=== PATIENT | female | born 1945 | race Caucasian/White ===

== ENCOUNTER 2019-09-09 10:32 | Observation (INO) ==
[2019-09-09 10:59] LABS: Basophils # 0.1 K/mcL (0.0-0.2); Basophils % 0.8 %; Eosinophils # 0.2 K/mcL (0.0-0.6); Hematocrit 22.4 % (35.3-44.9); Immature Granulocytes % 0.4 % (0-4); Lymphocytes # 1.7 K/mcL (0.6-4.6); Lymphocytes % 22.3 %; Mean Corpuscular HGB Conc 25.9 g/dL (31.6-35.5); Mean Corpuscular Hemoglobin 17.6 pg (28.0-33.3); Mean Corpuscular Volume 68.1 fL (83.0-100.0); Mean Platelet Volume 8.5 fL (9.4-12.4); Monocytes # 0.8 K/mcL (0.0-1.3); Monocytes % 10.7 %; Platelet Count 720 K/mcL (140-400); Red Blood Count 3.29 M/mcL (3.82-4.97); Red Cell Distribution Width 18.5 % (11.5-14.5); Segmented Neutrophils % 63.8 %; White Blood Count 7.8 K/mcL (4.3-11.1)
[2019-09-09 11:03] LABS: Hemoglobin 5.8 g/dL (11.5-15.4)
[2019-09-09 11:07] LABS: BUN/Creatinine Ratio 15 (6-26); Blood Urea Nitrogen 15 mg/dL (8-23); Calcium 8.8 mg/dL (8.6-10.3); Carbon Dioxide 25 mEq/L (23-29); Chloride 99 mEq/L (98-107); Glucose 119 mg/dL (70-105); Magnesium 1.9 mg/dL (1.6-2.6); Osmolality,Calculated 280 (280-300); Potassium 4.7 mEq/L (3.5-5.1); Sodium 134 mEq/L (136-145); Troponin I < 0.03 ng/mL (< 0.04); eGFR For African Americans > 60 (> 60); eGFR For Non-African Americans 56 (> 60)
[2019-09-09 11:18] LABS: Anisocytosis 1+ (Not Present); Platelet Estimate Marked Increase (Normal)
[2019-09-09 11:19] LABS: Hypochromasia Present (Not Present); Microcytosis Present (Not Present)
[2019-09-09] MEDS ORDERED: 0.9 % Sodium Chloride 250 ML ONE ×2 (11:53→16:11)
[2019-09-09] MEDS ORDERED: *HR* HYDROcodone/Acet 5/325 mg TABLET PO ONE (12:00)
[2019-09-09 12:33] LABS: % Iron Saturation 2 % (15-50); Iron 11 mcg/dL (50-170); Transferrin 398 mg/dL (203-362)
[2019-09-09] MEDS ORDERED: Naloxone 0.4 MG/ML INJ IVP PRN (12:44)
[2019-09-09] MEDS ORDERED: Ondansetron 4 MG/2 ML VIAL IVP PRN (12:44)
[2019-09-09] MEDS ORDERED: Albuterol 2.5 MG/3 ML NEBULIZER IH PRN (12:54)
[2019-09-09 13:08] LABS: Estimated Average Glucose 126 mg/dl
[2019-09-09 13:18] LABS: Ferritin 8 ng/mL (10-120)
[2019-09-09 13:25] LABS: Bilirubin,Urine Negative (Negative); Blood,Urine Negative (Negative); Clarity,Urine Clear (Clear); Color,Urine Yellow (Yellow); Glucose,Urine (UA) Normal (Normal); Ketones,Urine Negative (Negative); Leukocyte Esterase,Urine Small (Negative); Nitrite,Urine Negative (Negative); PH,Urine 5.5 pH Units (5.0-8.0); Protein,Urine Negative (Neg-Trace); Specific Gravity,Urine 1.018 (1.010-1.025); Urobilinogen,Urine Normal (Normal)
[2019-09-09 13:26] LABS: Bacteria,Urine None Seen per hpf (None-Few); Hyaline Casts,Urine None Seen per lpf (None-Few); RBC,Urine 0-3 per hpf (0-3); Squamous Epithelial Cell,Urine Many per lpf (None-Few)
[2019-09-09] MEDS: *HR* HYDROcodone/Acet 5/325 mg TABLET PO PRN ×2 (15:51→20:37)
[2019-09-10 01:26] LABS: Hematocrit 30.1 % (35.3-44.9); Mean Corpuscular HGB Conc 30.2 g/dL (31.6-35.5); Mean Corpuscular Hemoglobin 21.9 pg (28.0-33.3); Mean Corpuscular Volume 72.5 fL (83.0-100.0); Mean Platelet Volume 8.6 fL (9.4-12.4); Platelet Count 570 K/mcL (140-400); Red Blood Count 4.15 M/mcL (3.82-4.97); Red Cell Distribution Width 21.3 % (11.5-14.5); White Blood Count 8.2 K/mcL (4.3-11.1)
[2019-09-10 01:27] LABS: Hemoglobin 9.1 g/dL (11.5-15.4)
[2019-09-10 01:46] LABS: BUN/Creatinine Ratio 17 (6-26); Blood Urea Nitrogen 13 mg/dL (8-23); Calcium 8.6 mg/dL (8.6-10.3); Carbon Dioxide 26 mEq/L (23-29); Chloride 105 mEq/L (98-107); Glucose 93 mg/dL (70-105); Magnesium 1.9 mg/dL (1.6-2.6); Osmolality,Calculated 282 (280-300); Potassium 4.1 mEq/L (3.5-5.1); Sodium 136 mEq/L (136-145); eGFR For African Americans > 60 (> 60); eGFR For Non-African Americans > 60 (> 60)
[2019-09-10] MEDS: *HR* HYDROcodone/Acet 5/325 mg TABLET PO PRN ×2 (04:40→15:25)
[2019-09-10] MEDS ORDERED: Aspirin Enteric Coated 81 MG Tablet PO SCH (09:00)
[2019-09-10 09:28] LABS: Basophils # 0.1 K/mcL (0.0-0.2); Basophils % 0.8 %; Eosinophils # 0.3 K/mcL (0.0-0.6); Eosinophils % 3.8 %; Hematocrit 30.9 % (35.3-44.9); Immature Granulocytes % 0.5 % (0-4); Lymphocytes # 1.4 K/mcL (0.6-4.6); Mean Corpuscular HGB Conc 29.1 g/dL (31.6-35.5); Mean Corpuscular Hemoglobin 21.6 pg (28.0-33.3); Mean Corpuscular Volume 74.3 fL (83.0-100.0); Mean Platelet Volume 8.5 fL (9.4-12.4); Monocytes # 0.8 K/mcL (0.0-1.3); Monocytes % 9.1 %; Neutrophils # 5.7 K/mcL (1.6-8.9); Platelet Count 587 K/mcL (140-400); Red Blood Count 4.16 M/mcL (3.82-4.97); Red Cell Distribution Width 21.6 % (11.5-14.5); Segmented Neutrophils % 68.8 %; White Blood Count 8.3 K/mcL (4.3-11.1)
[2019-09-10] MEDS: Acetaminophen 325 MG TABLET PO PRN ×2 (09:38)
[2019-09-10] MEDS ORDERED: *HR* LORazepam 1 MG TABLET PO PRN (09:40)
[2019-09-10] MEDS ORDERED: diazePAM 5 MG TABLET PO ONE (09:41)
[2019-09-10 11:36] VITALS: BP 181/68
== END 2019-09-10 15:29 | disposition home health service (06) ==
LOC: 3ANU 10:32 → EMEROOARM 10:32 → SUATTDRO 12:51 → 3ANU 13:30
PROVIDERS: ADMIT Internal Medicine; ATTEND Internal Medicine

== ENCOUNTER 2019-11-21 00:22 | Observation (INO) ==
[2019-11-21 00:59] LABS: Basophils # 0.1 K/mcL (0.0-0.2); Basophils % 1.2 %; Eosinophils # 0.2 K/mcL (0.0-0.6); Eosinophils % 2.1 %; Hematocrit 35.6 % (35.3-44.9); Hemoglobin 11.4 g/dL (11.5-15.4); Immature Granulocytes % 0.2 % (0-4); Lymphocytes # 2.1 K/mcL (0.6-4.6); Lymphocytes % 26.2 %; Mean Corpuscular Hemoglobin 29.6 pg (28.0-33.3); Mean Corpuscular Volume 92.5 fL (83.0-100.0); Mean Platelet Volume 8.3 fL (9.4-12.4); Monocytes # 0.7 K/mcL (0.0-1.3); Platelet Count 443 K/mcL (140-400); Red Blood Count 3.85 M/mcL (3.82-4.97); Red Cell Distribution Width 25.8 % (11.5-14.5); Segmented Neutrophils % 61.3 %; White Blood Count 8.1 K/mcL (4.3-11.1)
[2019-11-21 01:16] LABS: BUN/Creatinine Ratio 13 (6-26); Blood Urea Nitrogen 11 mg/dL (8-23); Calcium 8.7 mg/dL (8.6-10.3); Carbon Dioxide 30 mEq/L (23-29); Chloride 103 mEq/L (98-107); Glucose 94 mg/dL (70-105); Osmolality,Calculated 285 (280-300); Potassium 3.6 mEq/L (3.5-5.1); Sodium 138 mEq/L (136-145); eGFR For African Americans > 60 (> 60); eGFR For Non-African Americans > 60 (> 60)
[2019-11-21 01:17] LABS: Troponin I < 0.03 ng/mL (< 0.04)
[2019-11-21 01:22] LABS: Anisocytosis 1+ (Not Present)
[2019-11-21 01:23] LABS: Hypochromasia Present (Not Present); Microcytosis Present (Not Present); Platelet Estimate Normal (Normal); Poikilocytosis 1+ (Not Present)
[2019-11-21 01:58] LABS: VBG HCO3 32 mEq/L (21-27); VBG PCO2 61 mmHg (41-51); VBG PH 7.33 pH Units (7.32-7.42); VBG PO2 41 mmHg (25-50)
[2019-11-21 02:15] LABS: INR 1.1; Prothrombin Time 12.5 Seconds (9.4-12.1)
[2019-11-21 02:18] LABS: Activated Partial Thrombo Time 31.9 Seconds (26.0-36.0)
[2019-11-21] MEDS: Acetaminophen 325 MG TABLET PO ONE ×2 (04:47→12:07)
[2019-11-21] MEDS ORDERED: Naloxone 0.4 MG/ML INJ IVP PRN (08:27)
[2019-11-21] MEDS ORDERED: Albuterol 2.5 MG/3 ML NEBULIZER IH PRN (08:31)
[2019-11-21] MEDS ORDERED: Aspirin 81 MG TAB.CHEW PO ONE (08:34)
[2019-11-21] MEDS: Aspirin Enteric Coated 81 MG Tablet PO SCH (09:14)
[2019-11-21] MEDS: carvediloL 6.25 MG TABLET PO SCH ×2 (10:26→16:35)
[2019-11-21] MEDS: *HR* Heparin 5,000 UNIT/ML VIAL SQ SCH ×2 (16:35→21:21)
[2019-11-21] MEDS: diazePAM 5 MG TABLET PO SCH (21:21)
[2019-11-22] MEDS: *HR* Heparin 5,000 UNIT/ML VIAL SQ SCH ×3 (05:44→21:02)
[2019-11-22] MEDS: Acetaminophen 325 MG TABLET PO PRN (06:10)
[2019-11-22] MEDS: Aspirin Enteric Coated 81 MG Tablet PO SCH (08:42)
[2019-11-22] MEDS: carvediloL 6.25 MG TABLET PO SCH ×2 (08:42→16:04)
[2019-11-22 10:48] LABS: Basophils # 0.1 K/mcL (0.0-0.2); Basophils % 1.1 %; Eosinophils # 0.2 K/mcL (0.0-0.6); Eosinophils % 3.6 %; Hematocrit 32.9 % (35.3-44.9); Hemoglobin 10.2 g/dL (11.5-15.4); Immature Granulocytes % 0.2 % (0-4); Lymphocytes # 1.6 K/mcL (0.6-4.6); Lymphocytes % 24.3 %; Mean Corpuscular Hemoglobin 29.8 pg (28.0-33.3); Mean Corpuscular Volume 96.2 fL (83.0-100.0); Mean Platelet Volume 8.7 fL (9.4-12.4); Monocytes # 0.5 K/mcL (0.0-1.3); Monocytes % 8.5 %; Platelet Count 359 K/mcL (140-400); Red Blood Count 3.42 M/mcL (3.82-4.97); Segmented Neutrophils % 62.3 %; White Blood Count 6.4 K/mcL (4.3-11.1)
[2019-11-22 11:07] LABS: BUN/Creatinine Ratio 10 (6-26); Blood Urea Nitrogen 8 mg/dL (8-23); Calcium 8.3 mg/dL (8.6-10.3); Carbon Dioxide 31 mEq/L (23-29); Chloride 103 mEq/L (98-107); Glucose 146 mg/dL (70-105); Osmolality,Calculated 289 (280-300); Potassium 3.6 mEq/L (3.5-5.1); Sodium 139 mEq/L (136-145); eGFR For African Americans > 60 (> 60); eGFR For Non-African Americans > 60 (> 60)
[2019-11-22 11:14] LABS: Anisocytosis 1+ (Not Present); Hypochromasia Present (Not Present); Microcytosis Present (Not Present); Platelet Estimate Normal (Normal)
[2019-11-22] MEDS: diazePAM 5 MG TABLET PO SCH (20:59)
[2019-11-23] MEDS: Acetaminophen 325 MG TABLET PO PRN (01:43)
[2019-11-23 05:37] LABS: Basophils # 0.1 K/mcL (0.0-0.2); Eosinophils # 0.2 K/mcL (0.0-0.6); Eosinophils % 3.8 %; Hemoglobin 10.2 g/dL (11.5-15.4); Immature Granulocytes % 0.3 % (0-4); Lymphocytes # 1.9 K/mcL (0.6-4.6); Lymphocytes % 32.4 %; Mean Corpuscular HGB Conc 31.9 g/dL (31.6-35.5); Mean Corpuscular Hemoglobin 29.8 pg (28.0-33.3); Mean Corpuscular Volume 93.6 fL (83.0-100.0); Monocytes # 0.6 K/mcL (0.0-1.3); Monocytes % 9.6 %; Neutrophils # 3.1 K/mcL (1.6-8.9); Platelet Count 387 K/mcL (140-400); Red Blood Count 3.42 M/mcL (3.82-4.97); Red Cell Distribution Width 25.2 % (11.5-14.5); Segmented Neutrophils % 52.9 %; White Blood Count 5.8 K/mcL (4.3-11.1)
[2019-11-23 05:56] LABS: Anisocytosis 2+ (Not Present); BUN/Creatinine Ratio 8 (6-26); Blood Urea Nitrogen 6 mg/dL (8-23); Calcium 8.7 mg/dL (8.6-10.3); Carbon Dioxide 32 mEq/L (23-29); Chloride 102 mEq/L (98-107); Glucose 92 mg/dL (70-105); Osmolality,Calculated 289 (280-300); Potassium 3.7 mEq/L (3.5-5.1); Sodium 141 mEq/L (136-145); eGFR For African Americans > 60 (> 60); eGFR For Non-African Americans > 60 (> 60)
[2019-11-23 05:57] LABS: Ovalocytes 1+ (Not Present); Platelet Estimate Normal (Normal); Tear Drop Cells 1+ (Not Present)
[2019-11-23] MEDS: *HR* Heparin 5,000 UNIT/ML VIAL SQ SCH (06:03)
[2019-11-23 07:12] VITALS: BP 163/77
[2019-11-23] MEDS: Aspirin Enteric Coated 81 MG Tablet PO SCH (09:05)
[2019-11-23] MEDS: carvediloL 6.25 MG TABLET PO SCH (09:05)
== END 2019-11-23 12:01 | disposition home health service (06) ==
LOC: SUATTDRO → 3BNU 00:22 → EMEROOARM 00:22 → 3BNU 13:19
PROVIDERS: ADMIT Internal Medicine; ATTEND Internal Medicine

== ENCOUNTER 2021-03-08 07:59 | Inpatient (IN) ==
[2021-03-08] MEDS ORDERED: 0.9 % Sodium Chloride 1,000 ML IVC ONE (08:28)
[2021-03-08 08:40] LABS: Basophils % 0.7 %; Immature Granulocytes % 0.4 % (0-4)
[2021-03-08 08:41] LABS: Basophils # 0.1 K/mcL (0.0-0.2); Eosinophils # 0.1 K/mcL (0.0-0.6); Eosinophils % 0.8 %; Hematocrit 24.7 % (35.3-44.9); Hemoglobin 7.1 g/dL (11.5-15.4); Lymphocytes % 8.4 %; Mean Corpuscular HGB Conc 28.7 g/dL (31.6-35.5); Mean Corpuscular Hemoglobin 24.4 pg (28.0-33.3); Mean Corpuscular Volume 84.9 fL (83.0-100.0); Mean Platelet Volume 9.4 fL (9.4-12.4); Monocytes # 0.8 K/mcL (0.0-1.3); Monocytes % 6.6 %; Neutrophils # 9.4 K/mcL (1.6-8.9); Platelet Count 648 K/mcL (140-400); Red Blood Count 2.91 M/mcL (3.82-4.97); Red Cell Distribution Width 19.7 % (11.5-14.5); Segmented Neutrophils % 83.1 %; White Blood Count 11.3 K/mcL (4.3-11.1)
[2021-03-08 08:47] LABS: INR 1.1; Prothrombin Time 12.3 Seconds (9.4-12.1)
[2021-03-08 09:01] LABS: BUN/Creatinine Ratio 11 (6-26); Blood Urea Nitrogen 13 mg/dL (8-23); Calcium 8.3 mg/dL (8.6-10.3); Carbon Dioxide 28 mEq/L (23-29); Chloride 102 mEq/L (98-107); Glucose 155 mg/dL (70-105); Osmolality,Calculated 287 (280-300); Potassium 4.7 mEq/L (3.5-5.1); Sodium 137 mEq/L (136-145); Troponin I < 0.03 ng/mL (< 0.04); eGFR For African Americans 55 (> 60); eGFR For Non-African Americans 46 (> 60)
[2021-03-08 09:13] LABS: Anisocytosis 1+ (Not Present); Hypochromasia Present (Not Present); Platelet Estimate Increased (Normal)
[2021-03-08 10:40] LABS: Bilirubin,Urine Negative (Negative); Blood,Urine Negative (Negative); Clarity,Urine Clear (Clear); Color,Urine Light-Yellow (Yellow); Glucose,Urine (UA) Normal (Normal); Ketones,Urine Negative (Negative); Leukocyte Esterase,Urine Negative (Negative); Nitrite,Urine Negative (Negative); PH,Urine 5.5 pH Units (5.0-8.0); Protein,Urine Negative (Neg-Trace); Specific Gravity,Urine 1.015 (1.010-1.025); Urobilinogen,Urine Normal (Normal)
[2021-03-08] MEDS ORDERED: 0.9 % Sodium Chloride 500 ML ONE (10:42)
[2021-03-08] MEDS ORDERED: Acetaminophen 325 MG TABLET PO ONE (10:45)
[2021-03-08] MEDS ORDERED: Tdap (Boostrix) Vaccine 0.5 ML SYRINGE IM ONE (10:46)
[2021-03-08] MEDS ORDERED: Ondansetron 4 MG/2 ML VIAL IVP PRN (12:05)
[2021-03-08] MEDS ORDERED: Naloxone 0.4 MG/ML INJ IVP PRN (12:05)
[2021-03-08] MEDS ORDERED: Perflutren Lipid Microsphere 1.3 ML in 0.9 % Sodium Chloride 8.7 ML IVP PRN (12:56)
[2021-03-08] MEDS ORDERED: Ipratropium/Albuterol Neb 3 ML IH PRN (13:00)
[2021-03-08] MEDS: *HR* Heparin 5,000 UNIT/ML VIAL SQ SCH (17:38)
[2021-03-08] MEDS: carvediloL 6.25 MG TABLET PO SCH (20:33)
[2021-03-08] MEDS: *HR* LORazepam 1 MG TABLET PO PRN (20:33)
[2021-03-09] MEDS: Acetaminophen 325 MG TABLET PO PRN ×3 (03:19→17:21)
[2021-03-09] MEDS: *HR* Heparin 5,000 UNIT/ML VIAL SQ SCH ×2 (05:34→17:21)
[2021-03-09 07:22] LABS: Basophils # 0.1 K/mcL (0.0-0.2); Basophils % 0.6 %; Eosinophils # 0.1 K/mcL (0.0-0.6); Eosinophils % 1.2 %; Hematocrit 23.7 % (35.3-44.9); Hemoglobin 7.1 g/dL (11.5-15.4); Immature Granulocytes % 0.5 % (0-4); Lymphocytes # 2.1 K/mcL (0.6-4.6); Lymphocytes % 18.9 %; Mean Corpuscular Hemoglobin 25.8 pg (28.0-33.3); Mean Corpuscular Volume 86.2 fL (83.0-100.0); Mean Platelet Volume 9.3 fL (9.4-12.4); Monocytes # 1.1 K/mcL (0.0-1.3); Neutrophils # 7.5 K/mcL (1.6-8.9); Platelet Count 461 K/mcL (140-400); Red Blood Count 2.75 M/mcL (3.82-4.97); Red Cell Distribution Width 19.2 % (11.5-14.5); Segmented Neutrophils % 68.8 %; White Blood Count 10.9 K/mcL (4.3-11.1)
[2021-03-09 07:31] LABS: BUN/Creatinine Ratio 14 (6-26); Blood Urea Nitrogen 15 mg/dL (8-23); Calcium 7.8 mg/dL (8.6-10.3); Carbon Dioxide 27 mEq/L (23-29); Chloride 103 mEq/L (98-107); Glucose 109 mg/dL (70-105); Osmolality,Calculated 281 (280-300); Potassium 4.2 mEq/L (3.5-5.1); Sodium 135 mEq/L (136-145); eGFR For African Americans > 60 (> 60); eGFR For Non-African Americans 51 (> 60)
[2021-03-09] MEDS: carvediloL 6.25 MG TABLET PO SCH ×2 (08:30→17:21)
[2021-03-10 01:26] LABS: Basophils # 0.1 K/mcL (0.0-0.2); Basophils % 0.7 %; Eosinophils # 0.3 K/mcL (0.0-0.6); Eosinophils % 2.9 %; Hematocrit 24.2 % (35.3-44.9); Hemoglobin 7.2 g/dL (11.5-15.4); Immature Granulocytes % 0.5 % (0-4); Lymphocytes # 2.2 K/mcL (0.6-4.6); Lymphocytes % 25.2 %; Mean Corpuscular HGB Conc 29.8 g/dL (31.6-35.5); Mean Corpuscular Hemoglobin 26.1 pg (28.0-33.3); Mean Corpuscular Volume 87.7 fL (83.0-100.0); Mean Platelet Volume 9.2 fL (9.4-12.4); Monocytes % 11.6 %; Neutrophils # 5.1 K/mcL (1.6-8.9); Platelet Count 408 K/mcL (140-400); Red Blood Count 2.76 M/mcL (3.82-4.97); Red Cell Distribution Width 19.7 % (11.5-14.5); Segmented Neutrophils % 59.1 %; White Blood Count 8.7 K/mcL (4.3-11.1)
[2021-03-10 01:35] LABS: % Iron Saturation 4 % (15-50); BUN/Creatinine Ratio 14 (6-26); Blood Urea Nitrogen 13 mg/dL (8-23); Calcium 7.8 mg/dL (8.6-10.3); Carbon Dioxide 27 mEq/L (23-29); Chloride 104 mEq/L (98-107); Glucose 88 mg/dL (70-105); Iron 10 mcg/dL (50-170); Osmolality,Calculated 286 (280-300); Potassium 4.1 mEq/L (3.5-5.1); Sodium 138 mEq/L (136-145); Transferrin 202 mg/dL (203-362); eGFR For African Americans > 60 (> 60); eGFR For Non-African Americans 57 (> 60)
[2021-03-10 01:54] LABS: Ferritin 19 ng/mL (10-120)
[2021-03-10 02:00] LABS: Folate 4.9 ng/mL (3.0-16.0)
[2021-03-10] MEDS: Acetaminophen 325 MG TABLET PO PRN ×3 (02:50→20:04)
[2021-03-10] MEDS: *HR* Heparin 5,000 UNIT/ML VIAL SQ SCH ×2 (05:14→16:48)
[2021-03-10] MEDS: carvediloL 6.25 MG TABLET PO SCH ×2 (08:32→16:48)
[2021-03-10] MEDS ORDERED: Melatonin 3 MG TABLET PO PRN (12:45)
[2021-03-10] MEDS: Furosemide 20 MG TABLET PO SCH (13:23)
[2021-03-10] MEDS: *HR* LORazepam 1 MG TABLET PO PRN (16:53)
[2021-03-11 05:18] LABS: Basophils # 0.1 K/mcL (0.0-0.2); Basophils % 0.6 %; Eosinophils # 0.3 K/mcL (0.0-0.6); Eosinophils % 3.9 %; Hemoglobin 7.5 g/dL (11.5-15.4); Immature Granulocytes % 0.4 % (0-4); Lymphocytes # 1.9 K/mcL (0.6-4.6); Lymphocytes % 22.2 %; Mean Corpuscular Hemoglobin 26.8 pg (28.0-33.3); Mean Corpuscular Volume 89.3 fL (83.0-100.0); Mean Platelet Volume 9.5 fL (9.4-12.4); Monocytes % 11.6 %; Neutrophils # 5.2 K/mcL (1.6-8.9); Nucleated Red Blood Cells 0.2 /100 WBC (0); Platelet Count 421 K/mcL (140-400); Segmented Neutrophils % 61.3 %; White Blood Count 8.4 K/mcL (4.3-11.1)
[2021-03-11 05:39] LABS: BUN/Creatinine Ratio 15 (6-26); Blood Urea Nitrogen 14 mg/dL (8-23); Calcium 7.9 mg/dL (8.6-10.3); Carbon Dioxide 32 mEq/L (23-29); Chloride 103 mEq/L (98-107); Glucose 110 mg/dL (70-105); Osmolality,Calculated 289 (280-300); Potassium 3.6 mEq/L (3.5-5.1); Sodium 139 mEq/L (136-145); eGFR For African Americans > 60 (> 60); eGFR For Non-African Americans > 60 (> 60)
[2021-03-11] MEDS: *HR* Heparin 5,000 UNIT/ML VIAL SQ SCH (06:05)
[2021-03-11] MEDS: carvediloL 6.25 MG TABLET PO SCH (08:27)
[2021-03-11] MEDS: Furosemide 20 MG TABLET PO SCH (08:27)
[2021-03-11] MEDS ORDERED: NON-FORMULARY MEDICATION 1 EACH EACH (Omeprazole [Prilosec] 40 MG Capsule.Dr) PO SCH (09:00)
[2021-03-11] MEDS ORDERED: Aspirin Enteric Coated 81 MG Tablet PO SCH (09:00)
[2021-03-11 12:14] VITALS: BP 141/68
== END 2021-03-11 14:17 | disposition home health service (06) | DRG 918 ==
LOC: EMEROOARM 07:59 → 3ANU 07:59 → SUATTDRO 21:46
PROVIDERS: ADMIT Internal Medicine; ATTEND Internal Medicine

== ENCOUNTER 2021-05-29 14:18 | Inpatient (IN) ==
[2021-05-29 16:14] LABS: Bacteria,Urine Few per hpf (None-Few); Bilirubin,Urine Negative (Negative); Blood,Urine Negative (Negative); Clarity,Urine Turbid (Clear); Color,Urine Light-Yellow (Yellow); Glucose,Urine (UA) Normal (Normal); Hyaline Casts,Urine Few per lpf (None Seen); Ketones,Urine Negative (Negative); Leukocyte Esterase,Urine Large (Negative); Mucus,Urine Few per lpf (None-Few); Nitrite,Urine Negative (Negative); Protein,Urine Negative (Neg-Trace); Specific Gravity,Urine 1.009 (1.010-1.025); Squamous Epithelial Cell,Urine Moderate per hpf (None-Few); Urobilinogen,Urine Normal (Normal); WBC,Urine 50-100 per hpf (0-3)
[2021-05-29 16:40] LABS: Red Blood Count 3.78 M/mcL (3.82-4.97); Red Cell Distribution Width 14.8 % (11.5-14.5)
[2021-05-29 16:42] LABS: Basophils # 0.1 K/mcL (0.0-0.2); Basophils % 0.7 %; Eosinophils # 0.2 K/mcL (0.0-0.6); Eosinophils % 2.4 %; Hematocrit 38.5 % (35.3-44.9); Hemoglobin 11.7 g/dL (11.5-15.4); Immature Granulocytes % 0.2 % (0-4); Immature Platelets 3.2 % (1.1-6.1); Lymphocytes # 1.9 K/mcL (0.6-4.6); Mean Corpuscular HGB Conc 30.4 g/dL (31.6-35.5); Mean Corpuscular Volume 101.9 fL (83.0-100.0); Mean Platelet Volume 9.8 fL (9.4-12.4); Monocytes # 0.6 K/mcL (0.0-1.3); Neutrophils # 5.5 K/mcL (1.6-8.9); Platelet Count 322 K/mcL (140-400); Segmented Neutrophils % 66.7 %; White Blood Count 8.3 K/mcL (4.3-11.1)
[2021-05-29 16:51] LABS: VBG Ionized Calcium 1.07 mmol/L (1.15-1.35)
[2021-05-29 16:59] LABS: Prothrombin Time 11.1 Seconds (9.4-12.1)
[2021-05-29 17:07] LABS: Platelet Estimate Normal (Normal)
[2021-05-29 17:25] LABS: Alanine Aminotransferase 8 Units/L (7-52); Albumin 3.4 g/dL (3.5-5.7); Alkaline Phosphatase 113 Units/L (34-104); Aspartate Amino Transferase 13 Units/L (13-39); BUN/Creatinine Ratio 11 (6-26); Bilirubin,Total 0.2 mg/dL (0.3-1.0); Blood Urea Nitrogen 8 mg/dL (8-23); Calcium 9.2 mg/dL (8.6-10.3); Carbon Dioxide 29 mEq/L (23-29); Chloride 102 mEq/L (98-107); Creatine Kinase 27 Units/L (30-223); Glucose 87 mg/dL (70-105); Magnesium 1.9 mg/dL (1.6-2.6); Osmolality,Calculated 290 (280-300); Phosphorous 3.8 mg/dL (2.7-4.5); Potassium 4.8 mEq/L (3.5-5.1); Sodium 141 mEq/L (136-145); Thyroid Stimulating Hormone 1.537 mcIU/mL (0.340-5.600); Troponin I < 0.03 ng/mL (< 0.04); eGFR For African Americans > 60 (> 60); eGFR For Non-African Americans > 60 (> 60)
[2021-05-29] MEDS ORDERED: cefTRIAXone 1,000 MG in Water for inj. (sterile) 10 ML IVP ONE (17:30)
[2021-05-29] MEDS ORDERED: Ondansetron 4 MG/2 ML VIAL IVP ONE (17:31)
[2021-05-29] MEDS ORDERED: Naloxone 0.4 MG/ML INJ IVP PRN (17:42)
[2021-05-29] MEDS ORDERED: Melatonin 3 MG TABLET PO PRN (17:42)
[2021-05-29 17:45] LABS: Globulin 3.3 g/dL (2.4-3.5); Total Protein 6.7 g/dL (6.4-8.9)
[2021-05-29] MEDS ORDERED: 0.9 % Sodium Chloride 500 ML IVC ONE (17:46)
[2021-05-29] MEDS ORDERED: Ipratropium/Albuterol Neb 3 ML IH PRN (18:22)
[2021-05-29] MEDS ORDERED: Furosemide 20 MG/2 ML VIAL IVP ONE (18:22)
[2021-05-29] MEDS ORDERED: Perflutren Lipid Microsphere 1.3 ML in 0.9 % Sodium Chloride 8.7 ML IVP PRN (21:15)
[2021-05-29] MEDS ORDERED: *HR* LORazepam 1 MG TABLET PO PRN (22:33)
[2021-05-30] MEDS: Acetaminophen 325 MG TABLET PO PRN ×2 (00:05→08:48)
[2021-05-30] MEDS: *HR* Heparin 5,000 UNIT/ML VIAL SQ SCH ×2 (04:56→16:54)
[2021-05-30] MEDS: cefTRIAXone 1,000 MG in Water for inj. (sterile) 10 ML IVP SCH (08:48)
[2021-05-30] MEDS ORDERED: Furosemide 20 MG TABLET PO PRN (18:50)
[2021-05-30] MEDS ORDERED: Furosemide 20 MG/2 ML VIAL IVP ONE (18:52)
[2021-05-30] MEDS: carvediloL 6.25 MG TABLET PO SCH (19:30)
[2021-05-30] MEDS ORDERED: Gabapentin 100 MG CAPSULE PO SCH (21:00)
[2021-05-30] MEDS ORDERED: Acetaminophen/Butalbital/CaffeineTABLET PO SCH (21:00)
[2021-05-31] MEDS: *HR* Heparin 5,000 UNIT/ML VIAL SQ SCH (05:12)
[2021-05-31 05:57] LABS: Basophils % 0.6 %; Eosinophils # 0.2 K/mcL (0.0-0.6); Eosinophils % 3.7 %; Hematocrit 33.8 % (35.3-44.9); Hemoglobin 10.5 g/dL (11.5-15.4); Immature Granulocytes % 0.2 % (0-4); Lymphocytes # 2.1 K/mcL (0.6-4.6); Lymphocytes % 33.7 %; Mean Corpuscular HGB Conc 31.1 g/dL (31.6-35.5); Mean Corpuscular Hemoglobin 31.3 pg (28.0-33.3); Mean Corpuscular Volume 100.6 fL (83.0-100.0); Mean Platelet Volume 9.7 fL (9.4-12.4); Monocytes # 0.6 K/mcL (0.0-1.3); Monocytes % 8.9 %; Neutrophils # 3.3 K/mcL (1.6-8.9); Platelet Count 302 K/mcL (140-400); Red Blood Count 3.36 M/mcL (3.82-4.97); Red Cell Distribution Width 14.8 % (11.5-14.5); Segmented Neutrophils % 52.9 %; White Blood Count 6.2 K/mcL (4.3-11.1)
[2021-05-31 06:20] LABS: BUN/Creatinine Ratio 12 (6-26); Blood Urea Nitrogen 9 mg/dL (8-23); Calcium 8.7 mg/dL (8.6-10.3); Carbon Dioxide 33 mEq/L (23-29); Chloride 101 mEq/L (98-107); Glucose 91 mg/dL (70-105); Osmolality,Calculated 288 (280-300); Potassium 3.8 mEq/L (3.5-5.1); Sodium 140 mEq/L (136-145); eGFR For African Americans > 60 (> 60); eGFR For Non-African Americans > 60 (> 60)
[2021-05-31] MEDS: carvediloL 6.25 MG TABLET PO SCH ×2 (08:40→15:21)
[2021-05-31] MEDS: cefTRIAXone 1,000 MG in Water for inj. (sterile) 10 ML IVP SCH (08:40)
[2021-05-31] MEDS ORDERED: diazePAM 5 MG TABLET PO SCH (09:00)
[2021-05-31] MEDS ORDERED: Furosemide 20 MG/2 ML VIAL IVP ONE (14:31)
[2021-05-31 15:18] VITALS: BP 137/60
[2021-06-01] MEDS ORDERED: Furosemide 20 MG TABLET PO SCH (09:00)
== END 2021-05-31 18:32 | disposition home health service (06) | DRG 552 ==
LOC: 3NENU 14:18 → EMEROOARM 14:18 → 3NENU 19:47 → SUATTDRO 05-30 14:09
PROVIDERS: ADMIT Internal Medicine; ATTEND Internal Medicine

== ENCOUNTER 2021-10-08 09:31 | Inpatient (IN) ==
[2021-10-08] MEDS ORDERED: Ipratropium/Albuterol Neb 3 ML IH ONE (09:36)
[2021-10-08] MEDS ORDERED: methylPREDNISolone 125 MG in 0.9 % Sodium Chloride 100 ML IVPB ONE (09:36)
[2021-10-08] MEDS ORDERED: 0.9 % Sodium Chloride 1,000 ML IVC ONE (09:36)
[2021-10-08] MEDS ORDERED: Azithromycin 500 MG in 0.9 % Sodium Chloride 250 ML IVPB ONE (09:41)
[2021-10-08] MEDS ORDERED: cefTRIAXone 1,000 MG in 0.9 % Sodium Chloride Mini Bag 100 ML IVPB ONE (09:41)
[2021-10-08] MEDS ORDERED: methylPREDNISolone 125 MG/2 ML VIAL IVP ONE (10:00)
[2021-10-08 10:12] LABS: Basophils % 0.1 %; Hematocrit 35.9 % (35.3-44.9); Hemoglobin 11.1 g/dL (11.5-15.4); Immature Granulocytes % 1.1 % (0-4); Lymphocytes # 1.1 K/mcL (0.6-4.6); Lymphocytes % 11.1 %; Mean Corpuscular HGB Conc 30.9 g/dL (31.6-35.5); Mean Corpuscular Hemoglobin 31.7 pg (28.0-33.3); Mean Corpuscular Volume 102.6 fL (83.0-100.0); Mean Platelet Volume 10.1 fL (9.4-12.4); Monocytes # 0.9 K/mcL (0.0-1.3); Neutrophils # 7.7 K/mcL (1.6-8.9); Platelet Count 267 K/mcL (140-400); Red Cell Distribution Width 12.7 % (11.5-14.5); Segmented Neutrophils % 78.7 %; White Blood Count 9.8 K/mcL (4.3-11.1)
[2021-10-08 10:19] LABS: INR 1.1; Prothrombin Time 12.8 Seconds (9.4-12.1)
[2021-10-08 10:21] LABS: Activated Partial Thrombo Time 31.4 Seconds (26.0-36.0)
[2021-10-08 10:53] LABS: Alanine Aminotransferase 22 Units/L (7-52); Albumin 3.6 g/dL (3.5-5.7); Alkaline Phosphatase 93 Units/L (34-104); Aspartate Amino Transferase 42 Units/L (13-39); BUN/Creatinine Ratio 24 (6-26); Bilirubin,Direct 0.1 mg/dL (0.0-0.2); Bilirubin,Indirect 0.1 mg/dL (0.0-1.0); Bilirubin,Total 0.2 mg/dL (0.3-1.0); Blood Urea Nitrogen 26 mg/dL (8-23); Calcium 8.2 mg/dL (8.6-10.3); Carbon Dioxide 28 mEq/L (23-29); Chloride 99 mEq/L (98-107); Globulin 3.7 g/dL (2.4-3.5); Glucose 123 mg/dL (70-105); Magnesium 1.8 mg/dL (1.6-2.6); Osmolality,Calculated 290 (280-300); Phosphorous 2.9 mg/dL (2.7-4.5); Sodium 137 mEq/L (136-145); Total Protein 7.3 g/dL (6.4-8.9); Troponin I 0.21 ng/mL (< 0.04); eGFR For African Americans > 60 (> 60); eGFR For Non-African Americans 50 (> 60)
[2021-10-08] MEDS ORDERED: Aspirin 325 MG TABLET PO ONE (11:02)
[2021-10-08 11:10] LABS: Amorphous Sediment,Urine Few per hpf (None-Few); Bilirubin,Urine Negative (Negative); Blood,Urine Negative (Negative); Clarity,Urine Turbid (Clear); Color,Urine Yellow (Yellow); Glucose,Urine (UA) Normal (Normal); Granular Casts,Urine Moderate per lpf (None Seen); Hyaline Casts,Urine Moderate per lpf (None Seen); Ketones,Urine 10 mg/dL (Negative); Leukocyte Esterase,Urine Negative (Negative); Mucus,Urine Few per lpf (None-Few); Nitrite,Urine Negative (Negative); PH,Urine 5.5 pH Units (5.0-8.0); Protein,Urine 70 mg/dL (Neg-Trace); RBC,Urine 0-3 per hpf (0-3); Squamous Epithelial Cell,Urine Few per hpf (None-Few); Transitional Epi Cells,Urine Few per hpf (None-Few); Urobilinogen,Urine Normal (Normal); WBC,Urine 0-3 per hpf (0-3)
[2021-10-08] MEDS ORDERED: Ondansetron 4 MG/2 ML VIAL IVP PRN (11:31)
[2021-10-08] MEDS: Ipratropium/Albuterol Neb 3 ML IH SCH ×2 (12:05→15:55)
[2021-10-08] MEDS ORDERED: Remdesivir 200 MG in 0.9 % Sodium Chloride 100 ML IVPB ONE (16:27)
[2021-10-08] MEDS ORDERED: MethylPREDNISolone 40 MG/ML VIAL IVP SCH (18:00)
[2021-10-08] MEDS: Ipratropium 1 PUFF INHALER IH SCH ×2 (20:27→23:12)
[2021-10-08] MEDS: *HR* LORazepam 1 MG TABLET PO PRN (21:41)
[2021-10-09] MEDS: Ipratropium 1 PUFF INHALER IH SCH ×5 (03:32→20:16)
[2021-10-09] MEDS: *HR* Enoxaparin 40 MG/0.4 ML SYRINGE SQ SCH (05:35)
[2021-10-09 07:27] LABS: Hematocrit 32.1 % (35.3-44.9); Hemoglobin 10.2 g/dL (11.5-15.4); Mean Corpuscular HGB Conc 31.8 g/dL (31.6-35.5); Mean Corpuscular Volume 100.6 fL (83.0-100.0); Mean Platelet Volume 10.1 fL (9.4-12.4); Platelet Count 271 K/mcL (140-400); Red Blood Count 3.19 M/mcL (3.82-4.97); Red Cell Distribution Width 12.9 % (11.5-14.5); White Blood Count 5.8 K/mcL (4.3-11.1)
[2021-10-09 08:35] LABS: BUN/Creatinine Ratio 29 (6-26); Blood Urea Nitrogen 25 mg/dL (8-23); Calcium 8.3 mg/dL (8.6-10.3); Carbon Dioxide 30 mEq/L (23-29); Chloride 103 mEq/L (98-107); Glucose 124 mg/dL (70-105); Osmolality,Calculated 298 (280-300); Potassium 4.3 mEq/L (3.5-5.1); Sodium 141 mEq/L (136-145); eGFR For African Americans > 60 (> 60); eGFR For Non-African Americans > 60 (> 60)
[2021-10-09 08:36] LABS: Albumin 3.3 g/dL (3.5-5.7); Bilirubin,Indirect 0.2 mg/dL (0.0-1.0); Bilirubin,Total 0.2 mg/dL (0.3-1.0); Globulin 3.2 g/dL (2.4-3.5); Total Protein 6.5 g/dL (6.4-8.9)
[2021-10-09] MEDS ORDERED: Aspirin 81 MG TAB.CHEW PO SCH (09:00)
[2021-10-09] MEDS ORDERED: Azithromycin 500 MG in 0.9 % Sodium Chloride 250 ML IVPB SCH (09:00)
[2021-10-09] MEDS: Acetaminophen 325 MG TABLET PO PRN ×2 (09:40→15:47)
[2021-10-09] MEDS: *HR* LORazepam 1 MG TABLET PO PRN (09:42)
[2021-10-09] MEDS ORDERED: Remdesivir 100 MG in 0.9 % Sodium Chloride 100 ML IVPB SCH (17:00)
[2021-10-09] MEDS: carvediloL 6.25 MG TABLET PO SCH (17:27)
[2021-10-09] MEDS: *HR* LORazepam 1 MG TABLET PO SCH ×2 (17:28→21:22)
[2021-10-09] MEDS ORDERED: Gabapentin 100 MG CAPSULE PO SCH (21:00)
[2021-10-09] MEDS ORDERED: Acetaminophen/Butalbital/CaffeineTABLET PO SCH (21:00)
[2021-10-10] MEDS: Ipratropium 1 PUFF INHALER IH SCH ×4 (00:12→10:45)
[2021-10-10] MEDS: *HR* Enoxaparin 40 MG/0.4 ML SYRINGE SQ SCH (05:08)
[2021-10-10 06:33] LABS: Albumin 3.3 g/dL (3.5-5.7); Albumin/Globulin Ratio 1.1 (1.1-2.2); Bilirubin,Direct 0.1 mg/dL (0.0-0.2); Bilirubin,Indirect 0.1 mg/dL (0.0-1.0); Bilirubin,Total 0.2 mg/dL (0.3-1.0); Globulin 2.9 g/dL (2.4-3.5); Total Protein 6.2 g/dL (6.4-8.9)
[2021-10-10] MEDS ORDERED: Azithromycin 250 MG TABLET PO SCH (09:00)
[2021-10-10] MEDS ORDERED: Cholecalciferol (D-3) 1,000 UNIT (25MCG) TABLET PO SCH (09:00)
[2021-10-10] MEDS ORDERED: Furosemide 20 MG TABLET PO SCH (09:00)
[2021-10-10] MEDS: *HR* LORazepam 1 MG TABLET PO SCH (09:44)
[2021-10-10] MEDS: carvediloL 6.25 MG TABLET PO SCH (09:47)
[2021-10-10 10:58] VITALS: BP 131/54; PULSE 80; TEMP 98; O2SAT 96
[2021-10-10] MEDS ORDERED: diazePAM 5 MG TABLET PO SCH (12:00)
== END 2021-10-10 12:36 | disposition home health service (06) | DRG 177 ==
LOC: 2NENU 09:31 → EMEROOARM 09:31 → 2NENU 15:30 → SUATTDRO 10-09 11:53
PROVIDERS: ADMIT Internal Medicine; ATTEND Internal Medicine

== ENCOUNTER 2022-07-30 12:02 | Inpatient (IN) ==
[2022-07-30] MEDS ORDERED: 0.9 % Sodium Chloride 1,000 ML IVC ONE (12:11)
[2022-07-30 12:53] LABS: Basophils # 0.1 K/mcL (0.0-0.2); Basophils % 0.5 %; Eosinophils # 0.1 K/mcL (0.0-0.6); Eosinophils % 0.5 %; Hematocrit 38.2 % (35.3-44.9); Hemoglobin 11.9 g/dL (11.5-15.4); Immature Granulocytes % 0.8 % (0-4); Lymphocytes % 9.1 %; Mean Corpuscular HGB Conc 31.2 g/dL (31.6-35.5); Mean Corpuscular Hemoglobin 31.2 pg (28.0-33.3); Mean Platelet Volume 9.7 fL (9.4-12.4); Monocytes # 0.8 K/mcL (0.0-1.3); Monocytes % 7.6 %; Neutrophils # 8.6 K/mcL (1.6-8.9); Platelet Count 332 K/mcL (140-400); Red Blood Count 3.82 M/mcL (3.82-4.97); Red Cell Distribution Width 13.2 % (11.5-14.5); Segmented Neutrophils % 81.5 %; White Blood Count 10.5 K/mcL (4.3-11.1)
[2022-07-30 12:56] LABS: Bacteria,Urine Few per hpf (None-Few); Bilirubin,Urine Negative (Negative); Blood,Urine Trace (Negative); Clarity,Urine Turbid (Clear); Color,Urine Yellow (Yellow); Glucose,Urine (UA) Normal (Normal); Hyaline Casts,Urine Few per lpf (None Seen); Ketones,Urine Negative (Negative); Leukocyte Esterase,Urine Large (Negative); Mucus,Urine Few per lpf (None-Few); Nitrite,Urine Positive (Negative); Protein,Urine 30 mg/dL (Neg-Trace); RBC,Urine 0-3 per hpf (0-3); Specific Gravity,Urine 1.015 (1.010-1.025); Squamous Epithelial Cell,Urine Few per hpf (None-Few); Urobilinogen,Urine Normal (Normal); WBC,Urine 30-50 per hpf (0-3)
[2022-07-30 13:06] LABS: INR 1.1; Prothrombin Time 11.9 Seconds (9.4-12.1)
[2022-07-30 13:09] LABS: Activated Partial Thrombo Time 29.8 Seconds (26.0-36.0)
[2022-07-30 13:27] LABS: Amphetamine Screen,Urine Negative ng/mL (Cutoff=1000); Barbiturate Screen,Urine Positive ng/mL (Cutoff=200); Benzodiazepines Screen,Urine Positive ng/mL (Cutoff=200); Cannabinoid Screen,Urine Negative ng/mL (Cutoff = 50); Cocaine Screen,Urine Negative ng/mL (Cutoff= 300); Opiate Screen,Urine Negative ng/mL (Cutoff=300); Phencyclidine Screen,Urine Negative ng/mL (Cutoff=25)
[2022-07-30 13:29] LABS: Alanine Aminotransferase 9 Units/L (7-52); Albumin 3.5 g/dL (3.5-5.7); Albumin/Globulin Ratio 0.8 (1.1-2.2); Alkaline Phosphatase 166 Units/L (34-104); Aspartate Amino Transferase 24 Units/L (13-39); BUN/Creatinine Ratio 14 (6-26); Bilirubin,Direct 0.1 mg/dL (0.0-0.2); Bilirubin,Indirect 0.2 mg/dL (0.0-1.0); Bilirubin,Total 0.3 mg/dL (0.3-1.0); Blood Urea Nitrogen 13 mg/dL (8-23); Calcium 9.1 mg/dL (8.6-10.3); Carbon Dioxide 35 mEq/L (23-29); Chloride 96 mEq/L (98-107); Ethanol < 10 mg/dL (Less than 10); Globulin 4.2 g/dL (2.4-3.5); Glucose 100 mg/dL (70-105); Osmolality,Calculated 292 (280-300); Potassium 4.5 mEq/L (3.5-5.1); Sodium 141 mEq/L (136-145); Total Protein 7.7 g/dL (6.4-8.9); Troponin I < 0.03 ng/mL (< 0.04)
[2022-07-30 13:39] LABS: Influenza A PCR Negative (Negative); Influenza B PCR Negative (Negative); Resp. Syncytial Virus PCR Negative (Negative)
[2022-07-30 13:42] LABS: SARS-CoV-2 by PCR (In House) Negative (Negative)
[2022-07-30] MEDS ORDERED: cefTRIAXone 2,000 MG in 0.9 % Sodium Chloride Mini Bag 100 ML IVPB ONE (13:45)
[2022-07-30] MEDS ORDERED: Naloxone 0.4 MG/ML INJ IVP PRN (16:46)
[2022-07-30] MEDS ORDERED: Ondansetron 4 MG/2 ML VIAL IVP PRN (16:46)
[2022-07-30] MEDS: predniSONE 20 MG TABLET PO SCH (17:24)
[2022-07-30] MEDS: Ipratropium/Albuterol Neb 3 ML IH SCH ×2 (19:10→22:38)
[2022-07-30] MEDS: *HR* LORazepam 0.5 MG TABLET PO SCH (20:46)
[2022-07-30] MEDS: Azithromycin 250 MG TABLET PO SCH (20:46)
[2022-07-30] MEDS: Gabapentin 100 MG CAPSULE PO SCH (20:46)
[2022-07-30] MEDS: carvediloL 6.25 MG TABLET PO SCH (20:53)
[2022-07-30] MEDS ORDERED: Acetaminophen/Butalbital/CaffeineTABLET PO SCH (21:00)
[2022-07-30 22:42] LABS: ABG Base Excess 6 mEq/L (-2 to 3); ABG HCO3 33 mEq/L (21-27); ABG Oxygen Saturation 97 % (95-98); ABG PCO2 54 mmHg (35-45); ABG PH 7.39 pH Units (7.32-7.45); ABG PO2 92 mmHg (85-104); ABG TCO2 34 mEq/L (20-26)
[2022-07-30] MEDS: Cefepime HCl 2,000 MG in 0.9 % Sodium Chloride 10 ML IVP SCH (23:13)
[2022-07-31 01:56] LABS: Basophils % 0.1 %; Hematocrit 31.3 % (35.3-44.9); Immature Granulocytes % 0.5 % (0-4); Lymphocytes # 0.7 K/mcL (0.6-4.6); Lymphocytes % 8.9 %; Mean Corpuscular HGB Conc 31.3 g/dL (31.6-35.5); Mean Corpuscular Hemoglobin 31.1 pg (28.0-33.3); Mean Corpuscular Volume 99.4 fL (83.0-100.0); Mean Platelet Volume 9.9 fL (9.4-12.4); Monocytes # 0.2 K/mcL (0.0-1.3); Neutrophils # 6.6 K/mcL (1.6-8.9); Platelet Count 260 K/mcL (140-400); Red Blood Count 3.15 M/mcL (3.82-4.97); Red Cell Distribution Width 13.2 % (11.5-14.5); Segmented Neutrophils % 87.5 %; White Blood Count 7.6 K/mcL (4.3-11.1)
[2022-07-31 01:57] LABS: Hemoglobin 9.8 g/dL (11.5-15.4)
[2022-07-31 02:14] LABS: Calcium 8.1 mg/dL (8.6-10.3)
[2022-07-31] MEDS: Ipratropium/Albuterol Neb 3 ML IH SCH ×4 (03:50→20:00)
[2022-07-31] MEDS: Cefepime HCl 2,000 MG in 0.9 % Sodium Chloride 10 ML IVP SCH ×2 (05:03→17:02)
[2022-07-31 05:50] LABS: A.calcoaceticus-baumannii cplx Not Detected (Not Detect); Bacteroides fragilis by PCR Not Detected (Not Detect); CTX-M ESBL Gene Not Detected (Not Detect); Enterobacter cloacae Cmplx PCR Not Detected (Not Detect); Enterobacterales by PCR DETECTED (Not Detect); Enterococcus faecalis by PCR Not Detected (Not Detect); Enterococcus faecium by PCR Not Detected (Not Detect); IMP Carbapenem-Resist Gene Not Detected (Not Detect); NDM Carbapenem-Resist Gene Not Detected (Not Detect); OXA-48-like Carbap-Resist Gene Not Detected (Not Detect); Staph epidermidis by PCR Not Detected (Not Detect); Staph lugdunensis by PCR Not Detected (Not Detect); Staphylococcus aureus by PCR Not Detected (Not Detect); Staphylococcus by PCR Not Detected (Not Detect); Streptococcus agalactiae(B)PCR Not Detected (Not Detect); Streptococcus by PCR Not Detected (Not Detect); Streptococcus pneumoniae PCR Not Detected (Not Detect); Streptococcus pyogenes (A) PCR Not Detected (Not Detect); VIM Carbapenem-Resist Gene Not Detected (Not Detect); blaKPC Carbapenem-Resist Gene Not Detected (Not Detect); mcr-1 Colistin-Resist Gene Not Detected (Not Detect); mecA/C & MREJ (MRSA) Gene Not Detected (Not Detect); mecA/C Methicillin-Resist Gene Not Detected (Not Detect); vanA/B Vancomycin-Resist Genes Not Detected (Not Detect)
[2022-07-31 05:51] LABS: Candida albicans by PCR Not Detected (Not Detect); Candida auris by PCR Not Detected (Not Detect); Candida glabrata by PCR Not Detected (Not Detect); Candida krusei by PCR Not Detected (Not Detect); Candida parapsilosis by PCR Not Detected (Not Detect); Candida tropicalis by PCR Not Detected (Not Detect); Crypto. neoformans/gattii PCR Not Detected (Not Detect); Escherichia coli by PCR DETECTED (Not Detect); Klebs. pneumoniae group by PCR Not Detected (Not Detect); Klebsiella aerogenes by PCR Not Detected (Not Detect); Klebsiella oxytoca by PCR Not Detected (Not Detect); Proteus by PCR Not Detected (Not Detect); Pseudomonas aeruginosa by PCR Not Detected (Not Detect); Salmonella species by PCR Not Detected (Not Detect); Serratia marcescens by PCR Not Detected (Not Detect); Stenotrophomonas maltophilia Not Detected (Not Detect)
[2022-07-31] MEDS: predniSONE 20 MG TABLET PO SCH (08:38)
[2022-07-31] MEDS: *HR* LORazepam 0.5 MG TABLET PO SCH ×3 (08:39→23:21)
[2022-07-31] MEDS: Isosorbide MONOnitrate (24 HR) 30 MG TAB.ER.24H PO SCH (08:39)
[2022-07-31] MEDS: carvediloL 6.25 MG TABLET PO SCH ×2 (08:39→17:03)
[2022-07-31] MEDS: Furosemide 20 MG TABLET PO SCH (11:08)
[2022-07-31] MEDS: *HR* Heparin 5,000 UNIT/ML VIAL SQ SCH (17:03)
[2022-07-31] MEDS: Azithromycin 250 MG TABLET PO SCH (23:21)
[2022-07-31] MEDS: Gabapentin 100 MG CAPSULE PO SCH (23:22)
[2022-08-01] MEDS: Ipratropium/Albuterol Neb 3 ML IH SCH ×4 (03:47→22:21)
[2022-08-01] MEDS: *HR* Heparin 5,000 UNIT/ML VIAL SQ SCH ×2 (06:16→16:44)
[2022-08-01] MEDS: Cefepime HCl 2,000 MG in 0.9 % Sodium Chloride 10 ML IVP SCH ×2 (06:17→16:43)
[2022-08-01 08:04] LABS: Basophils % 0.3 %; Eosinophils # 0.1 K/mcL (0.0-0.6); Eosinophils % 1.2 %; Hematocrit 29.9 % (35.3-44.9); Hemoglobin 9.5 g/dL (11.5-15.4); Immature Granulocytes % 0.4 % (0-4); Lymphocytes # 1.4 K/mcL (0.6-4.6); Lymphocytes % 18.3 %; Mean Corpuscular HGB Conc 31.8 g/dL (31.6-35.5); Mean Corpuscular Hemoglobin 31.3 pg (28.0-33.3); Mean Corpuscular Volume 98.4 fL (83.0-100.0); Mean Platelet Volume 9.7 fL (9.4-12.4); Monocytes # 0.7 K/mcL (0.0-1.3); Monocytes % 9.7 %; Neutrophils # 5.2 K/mcL (1.6-8.9); Platelet Count 247 K/mcL (140-400); Red Blood Count 3.04 M/mcL (3.82-4.97); Red Cell Distribution Width 13.2 % (11.5-14.5); Segmented Neutrophils % 70.1 %; White Blood Count 7.5 K/mcL (4.3-11.1)
[2022-08-01 08:22] LABS: Calcium 8.5 mg/dL (8.6-10.3); Magnesium 2.1 mg/dL (1.6-2.6); Phosphorous 2.9 mg/dL (2.7-4.5); Potassium 3.8 mEq/L (3.5-5.1)
[2022-08-01] MEDS: Isosorbide MONOnitrate (24 HR) 30 MG TAB.ER.24H PO SCH (08:43)
[2022-08-01] MEDS: carvediloL 6.25 MG TABLET PO SCH ×2 (08:43→16:44)
[2022-08-01] MEDS: *HR* LORazepam 0.5 MG TABLET PO SCH ×3 (08:43→21:10)
[2022-08-01] MEDS: Furosemide 20 MG TABLET PO SCH (08:43)
[2022-08-01] MEDS: predniSONE 20 MG TABLET PO SCH (08:43)
[2022-08-01] MEDS: Azithromycin 250 MG TABLET PO SCH (21:09)
[2022-08-01] MEDS: Gabapentin 100 MG CAPSULE PO SCH (21:10)
[2022-08-02] MEDS: Ipratropium/Albuterol Neb 3 ML IH SCH ×4 (04:10→22:27)
[2022-08-02 04:54] LABS: Hemoglobin 9.8 g/dL (11.5-15.4); Mean Corpuscular HGB Conc 31.6 g/dL (31.6-35.5); Mean Corpuscular Hemoglobin 31.5 pg (28.0-33.3); Mean Corpuscular Volume 99.7 fL (83.0-100.0); Mean Platelet Volume 9.7 fL (9.4-12.4); Platelet Count 229 K/mcL (140-400); Red Blood Count 3.11 M/mcL (3.82-4.97); Red Cell Distribution Width 13.1 % (11.5-14.5)
[2022-08-02 05:12] LABS: Calcium 8.2 mg/dL (8.6-10.3); Magnesium 2.1 mg/dL (1.6-2.6); Potassium 3.6 mEq/L (3.5-5.1)
[2022-08-02] MEDS: *HR* Heparin 5,000 UNIT/ML VIAL SQ SCH ×2 (05:48→17:18)
[2022-08-02] MEDS: Cefepime HCl 2,000 MG in 0.9 % Sodium Chloride 10 ML IVP SCH ×2 (05:48→17:18)
[2022-08-02] MEDS: Furosemide 20 MG TABLET PO SCH (08:11)
[2022-08-02] MEDS: *HR* LORazepam 0.5 MG TABLET PO SCH ×3 (08:11→21:17)
[2022-08-02] MEDS: Isosorbide MONOnitrate (24 HR) 30 MG TAB.ER.24H PO SCH (08:11)
[2022-08-02] MEDS: predniSONE 20 MG TABLET PO SCH (08:11)
[2022-08-02] MEDS: carvediloL 6.25 MG TABLET PO SCH ×2 (08:11→17:18)
[2022-08-02] MEDS: Gabapentin 100 MG CAPSULE PO SCH (21:17)
[2022-08-02] MEDS: Azithromycin 250 MG TABLET PO SCH (21:18)
[2022-08-03] MEDS: Ipratropium/Albuterol Neb 3 ML IH SCH ×4 (04:00→21:37)
[2022-08-03 04:24] LABS: Hematocrit 30.4 % (35.3-44.9); Hemoglobin 9.6 g/dL (11.5-15.4); Mean Corpuscular HGB Conc 31.6 g/dL (31.6-35.5); Mean Corpuscular Hemoglobin 31.2 pg (28.0-33.3); Mean Corpuscular Volume 98.7 fL (83.0-100.0); Mean Platelet Volume 9.7 fL (9.4-12.4); Platelet Count 264 K/mcL (140-400); Red Blood Count 3.08 M/mcL (3.82-4.97); Red Cell Distribution Width 13.2 % (11.5-14.5); White Blood Count 5.6 K/mcL (4.3-11.1)
[2022-08-03 04:43] LABS: Calcium 8.4 mg/dL (8.6-10.3); Magnesium 2.1 mg/dL (1.6-2.6); Potassium 3.6 mEq/L (3.5-5.1)
[2022-08-03] MEDS: Cefepime HCl 2,000 MG in 0.9 % Sodium Chloride 10 ML IVP SCH (05:29)
[2022-08-03] MEDS: *HR* Heparin 5,000 UNIT/ML VIAL SQ SCH ×2 (05:29→16:57)
[2022-08-03] MEDS: predniSONE 20 MG TABLET PO SCH (08:03)
[2022-08-03] MEDS: carvediloL 6.25 MG TABLET PO SCH ×2 (08:04→16:57)
[2022-08-03] MEDS: Isosorbide MONOnitrate (24 HR) 30 MG TAB.ER.24H PO SCH (08:04)
[2022-08-03] MEDS: Furosemide 20 MG TABLET PO SCH (08:04)
[2022-08-03] MEDS: *HR* LORazepam 0.5 MG TABLET PO SCH ×3 (08:04→19:56)
[2022-08-03] MEDS ORDERED: Ergocalciferol (VIT D2) 50,000 UNIT (1.25MG) CAP PO SCH (09:00)
[2022-08-03] MEDS: cefTRIAXone 2,000 MG in 0.9 % Sodium Chloride Mini Bag 100 ML IVPB SCH (11:14)
[2022-08-03] MEDS: Azithromycin 250 MG TABLET PO SCH (19:55)
[2022-08-03] MEDS: Gabapentin 100 MG CAPSULE PO SCH (19:56)
[2022-08-04] MEDS: Ipratropium/Albuterol Neb 3 ML IH SCH ×2 (03:39→09:42)
[2022-08-04 05:09] LABS: Hemoglobin 9.7 g/dL (11.5-15.4); Mean Corpuscular HGB Conc 31.3 g/dL (31.6-35.5); Mean Corpuscular Hemoglobin 30.5 pg (28.0-33.3); Mean Corpuscular Volume 97.5 fL (83.0-100.0); Mean Platelet Volume 9.8 fL (9.4-12.4); Platelet Count 263 K/mcL (140-400); Red Blood Count 3.18 M/mcL (3.82-4.97); Red Cell Distribution Width 12.8 % (11.5-14.5); White Blood Count 5.5 K/mcL (4.3-11.1)
[2022-08-04 05:28] LABS: Calcium 8.7 mg/dL (8.6-10.3); Magnesium 2.2 mg/dL (1.6-2.6); Potassium 3.5 mEq/L (3.5-5.1)
[2022-08-04] MEDS: *HR* Heparin 5,000 UNIT/ML VIAL SQ SCH (05:30)
[2022-08-04] MEDS: Isosorbide MONOnitrate (24 HR) 30 MG TAB.ER.24H PO SCH (08:50)
[2022-08-04] MEDS: carvediloL 6.25 MG TABLET PO SCH (08:52)
[2022-08-04] MEDS: Furosemide 20 MG TABLET PO SCH (08:52)
[2022-08-04] MEDS: *HR* LORazepam 0.5 MG TABLET PO SCH (08:52)
[2022-08-04] MEDS: cefTRIAXone 2,000 MG in 0.9 % Sodium Chloride Mini Bag 100 ML IVPB SCH (10:10)
[2022-08-04 10:41] VITALS: BP 121/61; PULSE 73; TEMP 97.9; O2SAT 96
== END 2022-08-04 12:56 | disposition home health service (06) | DRG 871 ==
LOC: 3BNU 12:02 → EMEROOARM 12:02 → SUATTDRO 16:25 → 3BNU 16:47 → SUATTDRO 07-31 12:08
PROVIDERS: ADMIT Student in an Organized Health Care Education/Training Program; ATTEND Internal Medicine

== ENCOUNTER 2022-08-12 12:15 | Inpatient (IN) ==
[2022-08-12] MEDS ORDERED: *HR* FentaNYL (PF) 100 MCG/2 ML VIAL IVP ONE (12:36)
[2022-08-12 12:52] LABS: Basophils % 0.4 %; Eosinophils % 0.2 %; Hematocrit 33.5 % (35.3-44.9); Hemoglobin 10.7 g/dL (11.5-15.4); Immature Granulocytes % 0.6 % (0-4); Lymphocytes # 0.9 K/mcL (0.6-4.6); Lymphocytes % 9.2 %; Mean Corpuscular HGB Conc 31.9 g/dL (31.6-35.5); Mean Corpuscular Hemoglobin 31.5 pg (28.0-33.3); Mean Corpuscular Volume 98.5 fL (83.0-100.0); Mean Platelet Volume 9.2 fL (9.4-12.4); Monocytes # 0.6 K/mcL (0.0-1.3); Monocytes % 6.1 %; Neutrophils # 8.5 K/mcL (1.6-8.9); Platelet Count 300 K/mcL (140-400); Red Cell Distribution Width 13.5 % (11.5-14.5); Segmented Neutrophils % 83.5 %; White Blood Count 10.2 K/mcL (4.3-11.1)
[2022-08-12 12:59] LABS: INR 1.1; Prothrombin Time 12.4 Seconds (9.4-12.1)
[2022-08-12 13:02] LABS: Activated Partial Thrombo Time 31.4 Seconds (26.0-36.0)
[2022-08-12 13:42] LABS: Calcium 8.3 mg/dL (8.6-10.3); Potassium 3.6 mEq/L (3.5-5.1); Troponin I 0.03 ng/mL (< 0.04)
[2022-08-12] MEDS ORDERED: Naloxone 0.4 MG/ML INJ IVP PRN (13:46)
[2022-08-12] MEDS ORDERED: *HR* HYDROcodone/Acet 5/325 mg TABLET PO PRN (13:55)
[2022-08-12] MEDS ORDERED: Ibuprofen 400 MG TABLET PO PRN (13:55)
[2022-08-12] MEDS ORDERED: Acetaminophen 325 MG TABLET PO PRN (13:55)
[2022-08-12] MEDS: *HR* OxyCODONE Immed Rel 5 MG TABLET PO PRN (17:06)
[2022-08-12] MEDS ORDERED: Ipratropium/Albuterol Neb 3 ML IH PRN (17:49)
[2022-08-12] MEDS ORDERED: Dextrose Gel 15 GM/37.5 ML TUBE PO PRN ×2 (17:53)
[2022-08-12] MEDS ORDERED: D5% in Water 1,000 ML IVC PRN (17:53)
[2022-08-12] MEDS ORDERED: *HR* Dextrose 50 % in Water (Syg) 50 ML SYRINGE IVP PRN (17:53)
[2022-08-12] MEDS ORDERED: *HR* Metoprolol 5 MG/5 ML VIAL IVP PRN (18:07)
[2022-08-12] MEDS ORDERED: Gabapentin 100 MG CAPSULE PO SCH (21:00)
[2022-08-12] MEDS: *HR* LORazepam 1 MG TABLET PO SCH (22:23)
[2022-08-12] MEDS: carvediloL 6.25 MG TABLET PO SCH (22:29)
[2022-08-13 03:19] LABS: Basophils # 0.1 K/mcL (0.0-0.2); Basophils % 0.6 %; Eosinophils % 0.1 %; Hematocrit 31.7 % (35.3-44.9); Immature Granulocytes % 0.4 % (0-4); Lymphocytes # 1.2 K/mcL (0.6-4.6); Lymphocytes % 15.8 %; Mean Corpuscular HGB Conc 31.5 g/dL (31.6-35.5); Mean Corpuscular Hemoglobin 30.9 pg (28.0-33.3); Mean Corpuscular Volume 97.8 fL (83.0-100.0); Mean Platelet Volume 9.6 fL (9.4-12.4); Monocytes % 12.3 %; Neutrophils # 5.5 K/mcL (1.6-8.9); Platelet Count 318 K/mcL (140-400); Red Blood Count 3.24 M/mcL (3.82-4.97); Red Cell Distribution Width 13.5 % (11.5-14.5); Segmented Neutrophils % 70.8 %; White Blood Count 7.8 K/mcL (4.3-11.1)
[2022-08-13 03:23] LABS: INR 1.2
[2022-08-13 03:40] LABS: Calcium 8.3 mg/dL (8.6-10.3); Potassium 3.6 mEq/L (3.5-5.1)
[2022-08-13] MEDS: Insulin LISPRO 300 UNITS/3 ML VIAL SUBQ SCH ×2 (08:26→11:52)
[2022-08-13] MEDS: *HR* LORazepam 1 MG TABLET PO SCH (08:29)
[2022-08-13] MEDS: carvediloL 6.25 MG TABLET PO SCH (08:29)
[2022-08-13] MEDS ORDERED: Isosorbide MONOnitrate (24 HR) 30 MG TAB.ER.24H PO SCH (09:00)
[2022-08-13] MEDS ORDERED: *HR* Dextrose 25% in Water (Syg) 10 ML SYRINGE IVP ONE (10:19)
[2022-08-13] MEDS ORDERED: *HR* Dextrose 50 % in Water (Syg) 50 ML SYRINGE IVP ONE (10:20)
[2022-08-13] MEDS: *HR* OxyCODONE Immed Rel 5 MG TABLET PO PRN (10:31)
[2022-08-13] MEDS ORDERED: *HR* FentaNYL (PF) 100 MCG/2 ML VIAL ONE (13:49)
[2022-08-13] MEDS ORDERED: Lidocaine -MPF 2% 5 ML VIAL ONE (13:50)
[2022-08-13] MEDS ORDERED: Ropivacaine/PF 0.5% 30 ML VIAL ONE (14:04)
[2022-08-13] MEDS ORDERED: *HR* Vasopressin 20 UNIT/ML VIAL ONE (14:59)
[2022-08-13] MEDS ORDERED: Tranexamic Acid 1,000 MG/10 ML VIAL ONE (15:15)
[2022-08-13] MEDS ORDERED: Ipratropium Neb 0.5 MG NEBULIZER IH PRN ×2 (16:22→17:07)
[2022-08-13] MEDS ORDERED: Ipratropium/Albuterol Neb 3 ML IH PRN (17:07)
[2022-08-13] MEDS ORDERED: Dextrose Gel 15 GM/37.5 ML TUBE PO PRN ×2 (17:07)
[2022-08-13] MEDS ORDERED: *HR* Dextrose 50 % in Water (Syg) 50 ML SYRINGE IVP PRN (17:07)
[2022-08-13] MEDS ORDERED: *HR* Metoprolol 5 MG/5 ML VIAL IVP PRN (17:07)
[2022-08-13] MEDS ORDERED: D5% in Water 1,000 ML IVC PRN (17:07)
[2022-08-13] MEDS ORDERED: Acetaminophen 325 MG TABLET PO PRN (17:07)
[2022-08-13] MEDS ORDERED: Naloxone 0.4 MG/ML INJ IVP PRN (17:07)
[2022-08-13] MEDS: Gabapentin 100 MG CAPSULE PO SCH (21:55)
[2022-08-13] MEDS: Clindamycin 900 MG/50 ML 900 MG/50 ML IV.SOLN IVPB SCH (23:55)
[2022-08-14 05:46] LABS: Hematocrit 22.5 % (35.3-44.9); Immature Granulocytes % 0.6 % (0-4); Lymphocytes # 1.1 K/mcL (0.6-4.6); Lymphocytes % 12.1 %; Mean Platelet Volume 9.6 fL (9.4-12.4); Monocytes # 0.9 K/mcL (0.0-1.3); Monocytes % 9.9 %; Neutrophils # 6.8 K/mcL (1.6-8.9); Platelet Count 258 K/mcL (140-400); Red Blood Count 2.32 M/mcL (3.82-4.97); Red Cell Distribution Width 13.9 % (11.5-14.5); Segmented Neutrophils % 77.4 %; White Blood Count 8.8 K/mcL (4.3-11.1)
[2022-08-14 05:50] LABS: Hemoglobin 7.2 g/dL (11.5-15.4)
[2022-08-14] MEDS: *HR* OxyCODONE Immed Rel 5 MG TABLET PO PRN ×2 (05:53→12:57)
[2022-08-14 06:06] LABS: Calcium 7.6 mg/dL (8.6-10.3); Magnesium 1.5 mg/dL (1.6-2.6); Phosphorous 3.4 mg/dL (2.7-4.5); Potassium 4.2 mEq/L (3.5-5.1)
[2022-08-14] MEDS: Clindamycin 900 MG/50 ML 900 MG/50 ML IV.SOLN IVPB SCH (08:18)
[2022-08-14] MEDS: carvediloL 6.25 MG TABLET PO SCH ×2 (08:18→17:25)
[2022-08-14] MEDS: Isosorbide MONOnitrate (24 HR) 30 MG TAB.ER.24H PO SCH (08:18)
[2022-08-14] MEDS: Aspirin Enteric Coated 325 MG Tablet PO SCH (08:18)
[2022-08-14] MEDS: *HR* HYDROcodone/Acet 5/325 mg TABLET PO PRN ×2 (08:20→17:26)
[2022-08-14] MEDS: Insulin LISPRO 300 UNITS/3 ML VIAL SUBQ SCH ×3 (08:20→16:38)
[2022-08-14] MEDS: Iron Sucrose Complex 250 MG in 0.9 % Sodium Chloride 250 ML IVPB SCH (10:34)
[2022-08-14 14:03] LABS: Influenza A PCR Negative (Negative); Influenza B PCR Negative (Negative); Resp. Syncytial Virus PCR Negative (Negative)
[2022-08-14 14:06] LABS: SARS-CoV-2 by PCR (In House) Positive (Negative)
[2022-08-14] MEDS: Gabapentin 100 MG CAPSULE PO SCH (19:27)
[2022-08-15 06:53] LABS: Basophils % 0.2 %; Eosinophils # 0.1 K/mcL (0.0-0.6); Eosinophils % 1.1 %; Hematocrit 21.2 % (35.3-44.9); Hemoglobin 6.6 g/dL (11.5-15.4); Immature Granulocytes % 0.2 % (0-4); Lymphocytes # 1.3 K/mcL (0.6-4.6); Lymphocytes % 24.2 %; Mean Corpuscular HGB Conc 31.1 g/dL (31.6-35.5); Mean Corpuscular Volume 99.5 fL (83.0-100.0); Mean Platelet Volume 9.8 fL (9.4-12.4); Monocytes # 0.5 K/mcL (0.0-1.3); Monocytes % 10.3 %; Neutrophils # 3.4 K/mcL (1.6-8.9); Platelet Count 233 K/mcL (140-400); Red Blood Count 2.13 M/mcL (3.82-4.97); Red Cell Distribution Width 13.7 % (11.5-14.5); White Blood Count 5.3 K/mcL (4.3-11.1)
[2022-08-15 07:03] LABS: Calcium 7.9 mg/dL (8.6-10.3); Phosphorous 3.1 mg/dL (2.7-4.5); Potassium 4.1 mEq/L (3.5-5.1)
[2022-08-15] MEDS: Insulin LISPRO 300 UNITS/3 ML VIAL SUBQ SCH ×3 (07:44→16:27)
[2022-08-15] MEDS: Aspirin Enteric Coated 325 MG Tablet PO SCH (08:08)
[2022-08-15] MEDS: Isosorbide MONOnitrate (24 HR) 30 MG TAB.ER.24H PO SCH (08:09)
[2022-08-15] MEDS: carvediloL 6.25 MG TABLET PO SCH ×2 (08:09→17:17)
[2022-08-15] MEDS: Iron Sucrose Complex 250 MG in 0.9 % Sodium Chloride 250 ML IVPB SCH (08:10)
[2022-08-15] MEDS: *HR* OxyCODONE Immed Rel 5 MG TABLET PO PRN ×2 (12:44→21:00)
[2022-08-15] MEDS: Furosemide 40 MG/4 ML VIAL IVP SCH (14:35)
[2022-08-15] MEDS: Ipratropium 1 PUFF INHALER IH SCH ×2 (16:39→22:16)
[2022-08-15 16:53] LABS: Hematocrit 23.1 % (35.3-44.9); Hemoglobin 7.4 g/dL (11.5-15.4)
[2022-08-15 17:14] LABS: Albumin 3.1 g/dL (3.5-5.7); Albumin/Globulin Ratio 1.1 (1.1-2.2); Bilirubin,Direct 0.1 mg/dL (0.0-0.2); Bilirubin,Indirect 0.1 mg/dL (0.0-1.0); Bilirubin,Total 0.2 mg/dL (0.3-1.0); Globulin 2.9 g/dL (2.4-3.5)
[2022-08-15] MEDS ORDERED: Remdesivir 200 MG in 0.9 % Sodium Chloride 100 ML IVPB ONE (18:00)
[2022-08-15] MEDS: cefTRIAXone 1,000 MG in 0.9 % Sodium Chloride Mini Bag 100 ML IVPB SCH (18:13)
[2022-08-15] MEDS: Azithromycin 500 MG in 0.9 % Sodium Chloride 250 ML IVPB SCH (18:23)
[2022-08-15] MEDS: Gabapentin 100 MG CAPSULE PO SCH (20:59)
[2022-08-16 04:08] LABS: Basophils % 0.2 %; Hematocrit 19.7 % (35.3-44.9); Hemoglobin 6.3 g/dL (11.5-15.4); Immature Granulocytes % 0.3 % (0-4); Lymphocytes # 0.8 K/mcL (0.6-4.6); Lymphocytes % 14.4 %; Mean Platelet Volume 9.9 fL (9.4-12.4); Monocytes # 0.7 K/mcL (0.0-1.3); Monocytes % 11.1 %; Neutrophils # 4.3 K/mcL (1.6-8.9); Nucleated Red Blood Cells 0.5 /100 WBC (0); Platelet Count 249 K/mcL (140-400); Red Blood Count 2.03 M/mcL (3.82-4.97); Red Cell Distribution Width 13.5 % (11.5-14.5); White Blood Count 5.8 K/mcL (4.3-11.1)
[2022-08-16] MEDS: Ipratropium 1 PUFF INHALER IH SCH ×4 (04:16→22:50)
[2022-08-16 04:21] LABS: Albumin 2.7 g/dL (3.5-5.7); Bilirubin,Direct 0.1 mg/dL (0.0-0.2); Bilirubin,Indirect 0.1 mg/dL (0.0-1.0); Bilirubin,Total 0.2 mg/dL (0.3-1.0); Calcium 7.8 mg/dL (8.6-10.3); Globulin 2.7 g/dL (2.4-3.5); Magnesium 1.7 mg/dL (1.6-2.6); Phosphorous 2.9 mg/dL (2.7-4.5); Potassium 4.4 mEq/L (3.5-5.1); Total Protein 5.4 g/dL (6.4-8.9)
[2022-08-16] MEDS: *HR* OxyCODONE Immed Rel 5 MG TABLET PO PRN ×2 (05:26→20:15)
[2022-08-16] MEDS ORDERED: 0.9 % Sodium Chloride 250 ML IVC SCH (08:30)
[2022-08-16] MEDS: Insulin LISPRO 300 UNITS/3 ML VIAL SUBQ SCH ×3 (09:16→17:18)
[2022-08-16] MEDS: carvediloL 6.25 MG TABLET PO SCH ×3 (09:37→17:20)
[2022-08-16] MEDS: cefTRIAXone 1,000 MG in 0.9 % Sodium Chloride Mini Bag 100 ML IVPB SCH (09:37)
[2022-08-16] MEDS: Isosorbide MONOnitrate (24 HR) 30 MG TAB.ER.24H PO SCH (09:37)
[2022-08-16] MEDS: Aspirin Enteric Coated 325 MG Tablet PO SCH (09:37)
[2022-08-16] MEDS: Furosemide 40 MG/4 ML VIAL IVP SCH (09:39)
[2022-08-16] MEDS ORDERED: 0.9 % Sodium Chloride 250 ML ONE (14:48)
[2022-08-16] MEDS ORDERED: Remdesivir 100 MG in 0.9 % Sodium Chloride 100 ML IVPB SCH (18:00)
[2022-08-16] MEDS: Azithromycin 500 MG in 0.9 % Sodium Chloride 250 ML IVPB SCH (18:42)
[2022-08-16] MEDS: Gabapentin 100 MG CAPSULE PO SCH (20:14)
[2022-08-16] MEDS: Remdesivir 100 MG in 0.9 % Sodium Chloride 100 ML IVPB SCH (20:14)
[2022-08-17] MEDS: Ipratropium 1 PUFF INHALER IH SCH ×4 (04:18→22:06)
[2022-08-17] MEDS: *HR* OxyCODONE Immed Rel 5 MG TABLET PO PRN ×3 (06:17→22:18)
[2022-08-17] MEDS: Insulin LISPRO 300 UNITS/3 ML VIAL SUBQ SCH ×3 (07:31→17:09)
[2022-08-17] MEDS: Isosorbide MONOnitrate (24 HR) 30 MG TAB.ER.24H PO SCH (07:52)
[2022-08-17] MEDS: Aspirin Enteric Coated 325 MG Tablet PO SCH (07:52)
[2022-08-17] MEDS: Furosemide 40 MG/4 ML VIAL IVP SCH (07:53)
[2022-08-17] MEDS: carvediloL 6.25 MG TABLET PO SCH ×2 (07:53→17:09)
[2022-08-17] MEDS: cefTRIAXone 1,000 MG in 0.9 % Sodium Chloride Mini Bag 100 ML IVPB SCH (07:54)
[2022-08-17 10:27] LABS: Basophils % 0.1 %; Immature Granulocytes % 0.5 % (0-4); Lymphocytes # 0.7 K/mcL (0.6-4.6); Lymphocytes % 9.4 %; Mean Corpuscular Hemoglobin 31.8 pg (28.0-33.3); Mean Corpuscular Volume 96.4 fL (83.0-100.0); Monocytes # 0.5 K/mcL (0.0-1.3); Monocytes % 5.8 %; Neutrophils # 6.6 K/mcL (1.6-8.9); Nucleated Red Blood Cells 0.3 /100 WBC (0); Platelet Count 320 K/mcL (140-400); Segmented Neutrophils % 84.2 %; White Blood Count 7.8 K/mcL (4.3-11.1)
[2022-08-17 10:34] LABS: Hemoglobin 8.9 g/dL (11.5-15.4)
[2022-08-17 10:44] LABS: Albumin 3.2 g/dL (3.5-5.7); Albumin/Globulin Ratio 1.1 (1.1-2.2); Bilirubin,Direct 0.1 mg/dL (0.0-0.2); Bilirubin,Indirect 0.2 mg/dL (0.0-1.0); Bilirubin,Total 0.3 mg/dL (0.3-1.0); Calcium 8.4 mg/dL (8.6-10.3); Globulin 2.8 g/dL (2.4-3.5); Magnesium 1.8 mg/dL (1.6-2.6); Phosphorous 3.2 mg/dL (2.7-4.5); Potassium 4.3 mEq/L (3.5-5.1)
[2022-08-17] MEDS: Azithromycin 500 MG in 0.9 % Sodium Chloride 250 ML IVPB SCH (17:08)
[2022-08-17] MEDS: Remdesivir 100 MG in 0.9 % Sodium Chloride 100 ML IVPB SCH (20:19)
[2022-08-17] MEDS: Gabapentin 100 MG CAPSULE PO SCH (20:20)
[2022-08-18] MEDS: Ipratropium 1 PUFF INHALER IH SCH ×3 (04:45→15:28)
[2022-08-18] MEDS ORDERED: amLODIPine 5 MG TABLET PO SCH (09:30)
[2022-08-18] MEDS: Furosemide 40 MG/4 ML VIAL IVP SCH (09:47)
[2022-08-18] MEDS: Aspirin Enteric Coated 325 MG Tablet PO SCH (09:47)
[2022-08-18] MEDS: Isosorbide MONOnitrate (24 HR) 30 MG TAB.ER.24H PO SCH (09:47)
[2022-08-18] MEDS: carvediloL 6.25 MG TABLET PO SCH ×2 (09:47→16:20)
[2022-08-18] MEDS: cefTRIAXone 1,000 MG in 0.9 % Sodium Chloride Mini Bag 100 ML IVPB SCH (09:48)
[2022-08-18] MEDS: Insulin LISPRO 300 UNITS/3 ML VIAL SUBQ SCH ×2 (09:48→12:07)
[2022-08-18 14:39] LABS: Albumin/Globulin Ratio 1.1 (1.1-2.2); Bilirubin,Indirect 0.3 mg/dL (0.0-1.0); Bilirubin,Total 0.3 mg/dL (0.3-1.0); Globulin 2.8 g/dL (2.4-3.5); Total Protein 5.8 g/dL (6.4-8.9)
[2022-08-18] MEDS: Azithromycin 500 MG in 0.9 % Sodium Chloride 250 ML IVPB SCH (16:20)
[2022-08-18] MEDS: *HR* OxyCODONE Immed Rel 5 MG TABLET PO PRN (16:20)
[2022-08-18 16:42] VITALS: BP 140/87; PULSE 81; TEMP 97.6; O2SAT 100
[2022-08-19] MEDS ORDERED: dexAMETHasone 4 MG TABLET PO SCH (09:00)
[2022-08-22] MEDS ORDERED: dexAMETHasone 4 MG TABLET PO SCH (09:00)
== END 2022-08-18 18:40 | DRG 480 ==
LOC: 3ANU 12:15 → EMEROOARM 12:15 → SUATTDRO 15:50 → 3ANU 15:54 → 4WAOSI 08-13 15:01
PROVIDERS: ADMIT Pharmacist; ATTEND Pharmacist

== ENCOUNTER 2022-09-18 12:59 | Observation (INO) ==
[~2022-09-18 12:59] MED LIST: *HR* FentaNYL (PF) 100 MCG/2 ML VIAL IVP PRN; *HR* Labetalol 20 MG/4 ML SYRINGE IVP PRN; *HR* OxyCODONE Immed Rel 5 MG TABLET PO PRN; Acetaminophen IV 1,000 MG/100 ML BAG IVPB PRN; Albuterol 2.5 MG/3 ML NEBULIZER IH PRN; CeFAZolin Syr 2,000MG/20 ML 2,000 MG/20 ML SYRINGE IVPB ONE; Ipratropium Neb 0.5 MG NEBULIZER IH PRN; Ondansetron 4 MG/2 ML VIAL IVP PRN; Ringers Solution, Lactated 1,000 ML IVC SCH
[2022-09-18] MEDS ORDERED: Ipratropium/Albuterol Neb 3 ML IH ONE (13:01)
[2022-09-18] MEDS ORDERED: Lidocaine HCL 4 ML Topical Solution (Laryng-O-Jet Kit Sterile Pak) TP ONE (15:41)
[2022-09-18] MEDS ORDERED: *HR* Propofol 200 MG/20 ML VIAL IVP ONE (15:42)
[2022-09-18] MEDS ORDERED: Ketamine HCL *QUVA* 50mg (1mL) SYRINGE ONE (15:42)
[2022-09-18] MEDS ORDERED: *HR* FentaNYL (PF) 100 MCG/2 ML VIAL ONE (15:43)
[2022-09-18] MEDS ORDERED: Lidocaine -MPF 2% 2 ML VIAL ONE (15:44)
[2022-09-18] MEDS ORDERED: Ethanol\\Acetic Acid\\Na Ace\\Ben 1,000 ML IRRIG.SOLN IR ONE (15:50)
[2022-09-18] MEDS ORDERED: *HR* Labetalol 20 MG/4 ML SYRINGE IVP ONE (17:14)
[2022-09-18] MEDS: *HR* HYDROmorphone PF 0.5 MG/0.5 ML SYRINGE IVP PRN ×2 (17:32→17:36)
[2022-09-18] MEDS ORDERED: Naloxone 0.4 MG/ML INJ IVP PRN (18:24)
[2022-09-18] MEDS ORDERED: Ibuprofen 400 MG TABLET PO PRN (18:24)
[2022-09-18] MEDS ORDERED: Ipratropium/Albuterol Neb 3 ML IH PRN (18:24)
[2022-09-18] MEDS ORDERED: *HR* HYDROcodone/Acet 5/325 mg TABLET PO PRN (18:24)
[2022-09-18] MEDS ORDERED: *HR* OxyCODONE/APAP 5/325 TABLET PO PRN (18:24)
[2022-09-18] MEDS ORDERED: Acetaminophen/Butalbital/CaffeineTABLET PO PRN (18:24)
[2022-09-18] MEDS ORDERED: *HR* OxyCODONE Immed Rel 5 MG TABLET PO PRN (18:24)
[2022-09-18] MEDS ORDERED: Ondansetron 4 MG/2 ML VIAL IVP PRN (18:24)
[2022-09-18] MEDS ORDERED: Remdesivir 100 MG in 0.9 % Sodium Chloride 100 ML IVPB SCH (19:00)
[2022-09-18] MEDS: Ipratropium 1 PUFF INHALER IH SCH (20:50)
[2022-09-18] MEDS ORDERED: Gabapentin 100 MG CAPSULE PO SCH (21:00)
[2022-09-18] MEDS ORDERED: carvediloL 6.25 MG TABLET PO SCH (21:00)
[2022-09-18] MEDS: Ringers Solution, Lactated 1,000 ML IVC SCH (22:17)
[2022-09-18] MEDS: Clindamycin 900 MG/50 ML 900 MG/50 ML IV.SOLN IVPB SCH (23:57)
[2022-09-19] MEDS: Ipratropium 1 PUFF INHALER IH SCH ×3 (03:15→15:11)
[2022-09-19] MEDS: Ringers Solution, Lactated 1,000 ML IVC SCH (04:30)
[2022-09-19] MEDS ORDERED: carvediloL 6.25 MG TABLET PO SCH (08:00)
[2022-09-19] MEDS: Clindamycin 900 MG/50 ML 900 MG/50 ML IV.SOLN IVPB SCH (08:16)
[2022-09-19] MEDS ORDERED: Azithromycin 500 MG in 0.9 % Sodium Chloride 250 ML IVPB SCH (09:00)
[2022-09-19] MEDS ORDERED: amLODIPine 5 MG TABLET PO SCH (09:00)
[2022-09-19] MEDS ORDERED: Aspirin Enteric Coated 325 MG Tablet PO SCH (09:00)
[2022-09-19] MEDS ORDERED: REMDESIVIR IVPB SCH (09:00)
[2022-09-19] MEDS ORDERED: Isosorbide MONOnitrate (24 HR) 30 MG TAB.ER.24H PO SCH (09:00)
[2022-09-19] MEDS ORDERED: CefTRIAXone 1,000 MG VIAL IVPB SCH (09:00)
[2022-09-19] MEDS ORDERED: AZITHROMYCIN 500 MG/250 ML IVPB SCH (09:00)
[2022-09-19] MEDS ORDERED: dexAMETHasone 4 MG TABLET PO SCH ×2 (09:00)
[2022-09-19] MEDS ORDERED: diazePAM 5 MG TABLET PO SCH (09:00)
[2022-09-19] MEDS ORDERED: Cyanocobalamin (B-12) 1,000 MCG TABLET PO SCH (09:00)
[2022-09-19] MEDS ORDERED: Furosemide 20 MG TABLET PO SCH (09:00)
[2022-09-19] MEDS ORDERED: cefTRIAXone 1,000 MG in 0.9 % Sodium Chloride 10 ML IVP SCH (09:00)
[2022-09-19 09:14] LABS: Hematocrit 28.9 % (35.3-44.9); Hemoglobin 8.7 g/dL (11.5-15.4); Mean Corpuscular HGB Conc 30.1 g/dL (31.6-35.5); Mean Corpuscular Hemoglobin 29.8 pg (28.0-33.3); Mean Platelet Volume 9.2 fL (9.4-12.4); Platelet Count 512 K/mcL (140-400); Red Blood Count 2.92 M/mcL (3.82-4.97); Red Cell Distribution Width 13.8 % (11.5-14.5); White Blood Count 8.7 K/mcL (4.3-11.1)
[2022-09-19 09:16] LABS: Calcium 8.5 mg/dL (8.6-10.3); Potassium 5.1 mEq/L (3.5-5.1)
[2022-09-19 15:13] VITALS: O2SAT 98
[2022-09-19 15:39] VITALS: BP 123/67; PULSE 84; TEMP 97.6
[2022-09-19 16:13] LABS: Adenovirus Not Detected (Not Detect); Coronavirus 229E Not Detected (Not Detect); Coronavirus HKU1 Not Detected (Not Detect); Coronavirus NL63 Not Detected (Not Detect); Coronavirus OC43 Not Detected (Not Detect); Human Metapneumovirus Not Detected (Not Detect); Human Rhinovirus/Enterovirus Not Detected (Not Detect)
[2022-09-19 16:14] LABS: Bordetella Pertussis Not Detected (Not Detect); Chlamydophila pneumoniae Not Detected (Not Detect); Influenza A Subtype 2009 H1 Not Detected (Not Detect); Influenza B Not Detected (Not Detect); Mycoplasma pneumoniae Not Detected (Not Detect); Parainfluenza Virus 1 Not Detected (Not Detect); Parainfluenza Virus 2 Not Detected (Not Detect); Parainfluenza Virus 3 Not Detected (Not Detect); Parainfluenza Virus 4 Not Detected (Not Detect); Respiratory Syncytial Virus Not Detected (Not Detect); SARS-CoV-2 Not Detected (Not Detect)
[2022-09-21] MEDS ORDERED: Ergocalciferol (VIT D2) 50,000 UNIT (1.25MG) CAP PO SCH (09:00)
== END 2022-09-19 17:15 ==
LOC: 4WAOSI 12:59 → SDCAOSI 12:59
PROVIDERS: ADMIT Orthopaedic Surgery Hand Surgery; ATTEND Orthopaedic Surgery Hand Surgery